=== PATIENT | male | born 1980 | race Two or more races ===

== ENCOUNTER 2017-09-25 12:19 | Emergency (ER) | payer SELFPAY ==
[~2017-09-25] VITALS: Ht 182.9 cm; Wt 68.9 kg
[~2017-09-25 12:19] MED LIST: NKM
[2017-09-25 12:24] VITALS: BP 113/69
[2017-09-25] MEDS ORDERED: GINKGO BILOBA120 M1 PO (12:31)
[2017-09-25] MEDS ORDERED: TRAMADOL HCL50 MG ORAL (13:21)
[2017-09-25] MEDS ORDERED: CEPHALEXIN500 MG ORAL (13:21)
[2017-09-25] MEDS ORDERED: BACTRIM DS TAB1 EAC1 ORAL (13:21)
[2017-09-25 13:48] VITALS: BP 113/69
--- NOTE | 2017-09-25 14:12 | Emergency Room Report ---
History of Present Illness General Chief Complaint: Skin Rash/Abscess Source: Patient Present Illness HPI The patient is a 37 old male presenting for rash. He states that he noticed redness on his right lower leg approximately one week prior. This has been increasing in size. Pain is an 8/10 dull ache and does not radiate. Worse with touch. He is unsure if he injured the leg. He denies any discharge from the area. He denies any fever or chills. 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 Review of Systems All Other Systems: negative except mentioned in HPI Physical Exam Vital Signs Date Time Temp Pulse Resp B/P (MAP) Pulse Ox O2 Delivery O2 Flow Rate FiO2 09/25/17 12:24 97.9 94 18 113/69 97 Room Air Sp02 EP Interpretation: reviewed, normal General Appearance: no apparent distress, alert, GCS 15, non-toxic Head: normocephalic, atraumatic Eyes: bilateral eye normal inspection, bilateral eye PERRL ENT: hearing grossly normal, normal pharynx, no angioedema, normal voice Musculoskeletal: normal range of motion, no calf tenderness, inflammation - R anterior lower leg, tender - R anterior lower leg Neurologic: alert, oriented x3, responsive, motor strength/tone normal, sensory intact, speech normal Psychiatric: judgement/insight normal, memory normal, mood/affect normal, no suicidal/homicidal ideation Skin: rash - R anterior lower leg: macular erythema. Warm to touch. Tender. Appears to be central lesion. Medical Decision Making PA Attestation Dr. Nye is my supervising physician. Patient management was discussed with my supervising physician Diagnostic Impression: Primary Impression: Cellulitis Qualified Codes: L03.115 - Cellulitis of right lower limb ER Course The patient is a 37 old male presenting for rash on right lower leg Ddx considered include but not limited to abscess, contusion, fracture, insect bite, contact dermatitis, eczema, cellulitis PE: afebrile. NAD R anterior lower leg: macular erythema. Warm to touch. Tender. Appears to be central lesion. No calf swelling or tenderness. Needle aspiration was attempted without any aspirate. Xray of leg unremarkable The patient be discharged with prescription for Keflex and Bactrim. He was given ER precautions and needs to FU with PMD Other X-Ray Diagnostic Results Other X-Ray Diagnostic Results : X-Ray ordered: R tib/fib # of Views/Limited Vs Complete: 3 View Indication: Pain EP Interpretation: Yes PA Xray: Interpretation reviewed, by supervising MD, and agrees with findings. Interpretation: no dislocation, no soft tissue swelling, no fractures Impression: No acute disease Electronically Signed by: Don Nathan PA-C Last Vital Signs Date Time Temp Pulse Resp B/P (MAP) Pulse Ox O2 Delivery O2 Flow Rate FiO2 09/25/17 13:48 97.9 94 18 113/69 97 Room Air Status: improved Disposition: HOME, SELF-CARE Condition: Improved Scripts Tramadol Hcl* (ULTRAM*) 50 Mg Tablet 50 MG ORAL Q6H Y for For Pain, #10 TAB 0 Refills Prov: DON NATHAN.A. 09/25/17 Trimethoprim/Sulfamethoxazole 160/800* (BACTRIM DS TABLET*) 1 Each Tablet 1 TAB ORAL TWICE A DAY, #14 TAB Prov: DON NATHAN.A. 09/25/17 Cephalexin* (KEFLEX*) 500 Mg Capsule 500 MG ORAL EVERY 12 HOURS, #14 CAP 0 Refills Prov: DON NATHAN P.A. 09/25/17 Referrals: NOT CHOSEN [facility]/MD,REFERRING (PCP) Patient Instructions: Cellulitis Additional Instructions: I discussed my findings with the patient. All questions and concerns have been answered. Treatment and medication compliance have been addressed. I advised the patient that they need to follow up with primary doctor within 3 days. Return to ED if symptoms worsen, new symptoms arise, or if needed for any reason. Patient verbalized understanding of discharge instructions. Return to the emergency department if he experienced increased redness, fever, chills, numbness or tingling, increased pain, or for any other reason DON NATHAN Sep 25, 2017 14:12
--- NOTE | 2017-09-26 12:45 | Diagnostic Imaging Report ---
Indication: PAIN Technique: 2 views of the right tibia and fibula Comparison: none Findings: No acute fractures. No dislocations. Joint spaces are preserved. No radiopaque foreign body. Impression: Negative
== END 2017-09-25 13:49 | disposition home or self-care (01) ==
LOC: EMR 13:00
DX: L03.115 Cellulitis of right lower limb (principal)
CPT/HCPCS: 99284